=== PATIENT | male | born 1945 | race Caucasian/White ===

== ENCOUNTER 2017-08-09 13:16 | Emergency (ER) | payer MEDICARE, BC ==
[2017-08-09 13:40] VITALS: BP 138/59
--- NOTE | 2017-08-09 14:13 | EDM.PDOC ---
ED HPI GENERAL MEDICAL PROBLEM - General Chief Complaint: Neuro Symptoms/Deficits Stated Complaint: CONFUSION Time Seen by Provider: 08/09/17 13:44 Source of Information: Reports: Patient, Family, RN Notes Reviewed History Limitations: Reports: No Limitations - History of Present Illness INITIAL COMMENTS - FREE TEXT/NARRATIVE: 72-year-old gentleman presents to emergency department today with a complaint of difficulty speaking and confusion, this event happened yesterday, in the morning it was unwitnessed he is with family today he feels he has returned to his baseline he is experiencing no symptoms at this time. They did call the nurses line recommended to directly to the emergency department for evaluation. He does have a history of dementia Onset therefore he cannot recall some of the details of his event - Related Data Allergies Allergy/AdvReac Type Severity Reaction Status Date / Time atorvastatin calcium Allergy Liver Verified 10/21/14 08:07 [From Lipitor] Problems codeine Allergy Hives Verified 10/21/14 08:07 rosuvastatin calcium Allergy Muscle Verified 10/21/14 08:07 [From Crestor] Aches simvastatin [From Zocor] Allergy Muscle Verified 10/21/14 08:07 Aches Home Meds: Home Meds Albuterol [Ventolin HFA] 2 puff INH Q4H PRN 10/04/13 [History] Ascorbic Acid [C-1000] 1 tab PO DAILY 10/04/13 [History] Aspirin [Adult Low Dose Aspirin EC] 81 mg PO DAILY 10/04/13 [History] Fish Oil/Driver-3 Fatty Acids [Fish Oil] 2 each PO BID 10/04/13 [History] Gluc 2KCl/Chondr/Antoine Hy/Hy Ac [Glucosamine & Chondroitin Cap] 1 cap PO BID 02/09 [History] Multivitamin [Multivitamins] 1 cap PO DAILY 10/04/13 [History] Fluticasone Propionate [Flonase] 2 spray KJ ASDIRECTED 10/18/14 [History] Mirtazapine [Remeron] 30 tab PO BEDTIME 10/18/14 [History] Triamcinolone Acetonide [Kenalog 0.1% Crm] 1 appful TOP ASDIRECTED 10/18/14 [ History] Cholecalciferol (Vitamin D3) [Vitamin D3] 3,000 unit PO DAILY 08/09/17 [History] Cyanocobalamin (Vitamin B-12) [B-12] 2,000 mcg PO DAILY 08/09/17 [History] Isosorbide Mononitrate [Imdur] 30 mg PO DAILY 08/09/17 [History] Metoprolol Tartrate [Lopressor] 25 mg PO BID 08/09/17 [History] Omeprazole Magnesium [Prilosec Otc] 20 mg PO DAILY 08/09/17 [History] Tiotropium [Spiriva HandiHaler] 18 mcg INH DAILY 08/09/17 [History] buPROPion HCl [Wellbutrin SR] 450 mg PO DAILY 08/09/17 [History] Past Medical History HEENT History: Reports: Cataract Cardiovascular History: Reports: CAD Respiratory History: Reports: COPD Genitourinary History: Reports: Prostate Disorder Musculoskeletal History: Reports: Osteoarthritis Psychiatric History: Reports: Dementia Oncologic (Cancer) History: Reports: Prostate - Past Surgical History HEENT Surgical History: Reports: Cataract Surgery Social & Family History - Tobacco Use Smoking Status *Q: Former Smoker Years of Tobacco use: 50 Used Tobacco, but Quit: Yes Month Tobacco Last Used: 30 Second Hand Smoke Exposure: No - Caffeine Use Caffeine Use: Reports: Coffee - Alcohol Use Days Per Week of Alcohol Use: 0 - Recreational Drug Use Recreational Drug Use: No ED ROS GENERAL - Review of Systems Review Of Systems: See Below Constitutional: Reports: No Symptoms HEENT: Reports: No Symptoms Respiratory: Reports: No Symptoms Cardiovascular: Reports: No Symptoms GI/Abdominal: Reports: No Symptoms : Reports: No Symptoms Musculoskeletal: Reports: No Symptoms Skin: Reports: Dryness Neurological: Reports: Confusion, Change in Speech, Other (Difficulty with memory) ED EXAM, HEAD INJURY - Physical Exam Exam: See Below Text/Narrative:: General: Male, not in any distress, alert and oriented x3 HEENT: head is atraumatic normocephalic, eyes pupils equal round reactive to light, sclera clear no conjunctivitis appreciated. Ears tympanic membranes clear and moser landmarks and light reflex are present bilaterally canals are clear. Nose no septal deviation, nares are clear, no blood present. Mouth mucosa is moist and pink no erythema or exudate noted in soft palate, tongue is midline uvula is midline, dentition is intact. Neck: Supple no thyromegaly no tracheal deviation. Nodes: Cervical nodes subclavicular nodes nontender no palpable lymphadenopathy noted. Lungs: clear to auscultation bilaterally with symmetrical respirations, no adventitious noise appreciated. CV: Regular rate and rhythm S1 and S2 appreciated no murmurs rubs or gallops noted. Abdomen: Soft, nontender, no palpable masses or organomegaly appreciated, no distention no guarding bowel sounds are present, [scars ]. Neuro: Cranial nerves II through XII grossly intact, power is 5 out 5 in upper and lower extremities, patellar reflex, biceps reflex +2 can do finger to nose without difficulty no dysdiadochokinesis no difficulty with rapid alternating movements can do [id number] without difficulty Romberg is negative, has adequate gait can do heel to toe, can toe walk and heel walk no cerebellar dysfunction no focal neurologic deficit Skin: Warm and dry, intact Extremities: No lower extremity edema appreciated, Course - Vital Signs Last Recorded V/S: Last Vital Signs Temp 96.3 F 08/09/17 13:40 Pulse 74 08/09/17 13:40 Resp 16 08/09/17 13:40 BP 138/59 L 08/09/17 13:40 Pulse Ox 97 08/09/17 13:40 - Orders/Labs/Meds Orders: Active Orders 24 hr Category Date Time Status EKG Documentation Completion [RC] ASDIRECTED Care 08/09/17 14:09 Active EKG 12 Lead [EK] Urgent Ther 08/09/17 14:08 Ordered Labs: Laboratory Tests 08/09/17 08/09/17 08/09/17 Range/Units 14:18 14:18 14:18 WBC 6.2 (4.5-11.0) K/uL RBC 4.57 (4.30-5.90) M/uL Hgb 13.4 (12.0-15.0) g/dL Hct 41.2 (40.0-54.0) % MCV 90 (80-98) fL MCH 29 (27-31) pg MCHC 33 (32-36) % Plt Count 204 (150-400) K/uL Neut % (Auto) 54 (36-66) % Lymph % (Auto) 27 (24-44) % [place] % (Auto) 13 H (2-6) % Eos % (Auto) 6 H (2-4) % Baso % (Auto) 0 (0-1) % Sodium 141 (140-148) mmol/L Potassium 3.7 (3.6-5.2) mmol/L Chloride 105 (100-108) mmol/L Carbon Dioxide 30 (21-32) mmol/L Anion Gap 6.1 (5.0-14.0) mmol/L BUN 22 H (7-18) mg/dL Creatinine 1.0 (0.8-1.3) mg/dL Est Cr Clr Drug Dosing 58.48 mL/min Estimated GFR (MDRD) > 60 (>60) Glucose 105 (74-106) mg/dL Calcium 8.9 (8.5-10.1) mg/dL Total Bilirubin 0.4 (0.2-1.0) mg/dL AST 15 (15-37) U/L ALT 28 (12-78) U/L Alkaline Phosphatase 72 (46-116) U/L Total Protein 6.5 (6.4-8.2) g/dL Albumin 3.0 L (3.4-5.0) g/dL Globulin 3.5 (2.3-3.5) g/dL Albumin/Globulin Ratio 0.9 L (1.2-2.2) TSH, Ultra Sensitive 0.924 (0.358-3.740) uIU/mL Departure - Departure Time of Disposition: 15:05 Disposition: Home, Self-Care 01 Condition: Good Clinical Impression: Transient confusion - Discharge Information Referrals: Sonia Anderson NP [Primary Care Provider] - Forms: ED Department Discharge Additional Instructions: Please followup with your primary care provider in 3-5 days if not better, please call return to the emergency department with worsening of symptoms. - My Orders Last 24 Hours: My Active Orders 08/09/17 14:08 EKG 12 Lead [EK] Urgent 08/09/17 14:09 EKG Documentation Completion [RC] ASDIRECTED - Assessment/Plan Last 24 Hours: My Active Orders 08/09/17 14:08 EKG 12 Lead [EK] Urgent 08/09/17 14:09 EKG Documentation Completion [RC] ASDIRECTED Plan: Assessment Acuity = acute Site and laterality = confusion with resolution Etiology = unclear etiology Manifestations = none Location of injury = Home Lab values = CBC, CMP, thyroid all within normal limits CT scan shows no acute process. EKG demonstrates normal sinus rhythm there is no atrial enlargement there is no ventricular enlargement there is no axis deviation no T wave inversions I don't appreciate any ST depressions or elevations no Q waves noted good R wave progression Plan I did review lab work and CT scan results with him as well as EKG I'm follow-up with his primary care in 3-5 days for further evaluation Patient was in agreement with the plan all questions were answered, they were instructed to return to the emergency department or call for worsening symptoms. This note was dictated using [employer] voice recognition software please call with any questions.
--- NOTE | 2017-08-09 14:40 | CT ---
CT head without contrast. Indication: Difficulty speaking. Findings: Total DLP 761 Findings: no hemorrhage. No subacute territorial infarct. Mild hypodensity surrounding the deep and p eriventricular white matter can indicate chronic small vessel ischemic disease. Calvarium intact. Muc osal thickening throughout the ethmoid air cells. Near opacification of the right sphenoid sinus. Impression: 1. No acute intracranial process by CT. 2. Sinus disease as described above.
== END 2017-08-09 15:22 | disposition home or self-care (01) ==
LOC: JP.ED 13:16
DX: R41.0 Disorientation, unspecified (principal); I25.10 Atherosclerotic heart disease of native coronary artery without angina pectoris; J44.9 Chronic obstructive pulmonary disease, unspecified; F03.90 Unspecified dementia, unspecified severity, without behavioral disturbance, psychotic disturbance, mood disturbance, and anxiety; Z87.891 Personal history of nicotine dependence; Z79.82 Long term (current) use of aspirin; Z79.899 Other long term (current) drug therapy; Z88.5 Allergy status to narcotic agent; Z88.8 Allergy status to other drugs, medicaments and biological substances
CPT/HCPCS: 36415; 70450; 70450-26; 80053; 84443; 85025; 93005; 93010; 99284; 99285-25